=== PATIENT | female | born 1990 | race Caucasian/White ===

== ENCOUNTER 2017-05-02 02:53 | Emergency (ER) | payer SELFPAY ==
[~2017-05-02] VITALS: Ht 165.1 cm; Wt 61.5 kg
[~2017-05-02 02:53] MED LIST: TETA1INJ4 IM; TRIA.1%T TOP; [UNRECOGNIZED DRUG - CODE]
[2017-05-02 02:54] VITALS: BP 151/89; PULSE 104; RESP 18; TEMP 98; O2SAT 99
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
[2017-05-02] MEDS ORDERED: ACETAMINOPHEN 500 MG CPLT PO ONE (03:30)
== END 2017-05-02 03:42 | disposition home or self-care (01) ==
LOC: NEPD 02:53
DX: S01.511A Laceration without foreign body of lip, initial encounter (principal); S00.83XA Contusion of other part of head, initial encounter; Y04.0XXA Assault by unarmed brawl or fight, initial encounter
CPT/HCPCS: 12011